=== PATIENT | female | born 1970 | race Caucasian/White ===

== ENCOUNTER 2022-03-05 12:30 | Outpatient (CLI) | payer MEDICARE, SELFPAY ==
[2022-03-05 14:36] LABS: Basophils Absolute Auto 0.03 K/uL (0.00-0.30); Basophils Percent Auto 0.5 % (0.0-3.0); Eosinophils Absolute Auto 0.28 K/uL (0.00-0.50); Eosinophils Percent Auto 4.5 % (0.0-7.0); Hematocrit 39.8 % (33.0-51.0); Hemoglobin* 12.9 gm/dL (12.0-16.0); Immature Granulocytes Abs Auto 0.01 K/uL (0.00-0.30); Immature Granulocytes Pct Auto 0.2 %; Lymphocytes Absolute Auto 2.67 K/uL (0.90-2.90); Lymphocytes Percent Auto 42.5 % (20-44); Mean Corpuscular HGB Conc 32 gm/dL (32-36); Mean Corpuscular Hemoglobin 32 pg (26-34); Mean Corpuscular Volume 98 fL (80-100); Monocytes Percent Auto 9.1 % (0.0-11.0); Neutrophils Absolute Auto 2.72 K/uL (1.7-7.0); Neutrophils Percent Auto 43.2 % (42.0-72.0); Platelet Count* 305 K/uL (140-440); RDW Coefficient of Variation % 12.5 % (11.5-15.5); Red Blood Count 4.07 m/uL (4.00-5.20); White Blood Count* 6.28 K/uL (4.50-11.00)
[2022-03-05 14:50] LABS: Slide Review Reflex No
[2022-03-05 15:31] LABS: Chloride* 104 mmol/L (96-114); Potassium* 4.9 mmol/L (3.6-5.1); Sodium* 141 mmol/L (135-149)
[2022-03-05 15:33] LABS: Creatinine* 1.1 mg/dL (0.5-1.5); Estimated Glomerular Filt Rate 61 ml/min
[2022-03-05 15:34] LABS: Blood Urea Nitrogen* 28 mg/dL (7-30); Calcium* 9.3 mg/dL (8.4-10.6); Carbon Dioxide* 30 mmol/L (20-32); Glucose* 96 mg/dL (60-115)
== END 2022-03-05 12:31 | disposition home or self-care (01) ==
PROVIDERS: PCP Family Medicine; Visit Provider Family Medicine
DX: I10 Essential (primary) hypertension (principal); R35.0 Frequency of micturition; M54.50 Low back pain, unspecified
CPT/HCPCS: 80048; 85025

== ENCOUNTER 2022-10-03 11:40 | Outpatient (CLI) | payer MEDICARE, SELFPAY | END 2022-10-03 11:41 | disposition home or self-care (01) | LOC: OP CLINIC 11:41 | PROVIDERS: PCP Family Medicine; Visit Provider Internal Medicine | DX: Z12.11 Encounter for screening for malignant neoplasm of colon (principal); K64.8 Other hemorrhoids; K63.5 Polyp of colon | CPT/HCPCS: 45380; 88305; J2250; J3010 ==

== ENCOUNTER 2023-01-07 14:22 | Outpatient (CLI) | payer MEDICARE, SELFPAY ==
--- NOTE | 2023-01-07 14:40 | CRLHL7_ITS ---
For Patients: As a result of the Century Cures Act, medical imaging exams and procedure reports are released immediately into your electronic medical record. You may view this report before your referring provider. If you have questions, please contact your health care provider. BILATERAL SCREENING MAMMOGRAM WITH COMPUTER-AIDED DETECTION TECHNIQUE: CC and MLO views were obtained. These mammographic images have been obtained using full-field digital technique. These mammographic images were interpreted with the benefit of computer-aided detection. COMPARISON FILM: 09/21/20. FINDINGS: The breasts are almost entirely fatty IMPRESSION: There is no radiographic evidence for malignancy. ASSESSMENT: BI-RADS Category 1: Negative RECOMMENDATION: Routine screening mammogram in 1 year. A lay language report of this examination will be provided to the patient. Peter Armando M.D. Diagnostic Radiologist [email or web address] JACQUI/florecita / be/Dictated by: Peter Armando MD @ 01/08/2023 12:42:00 PM (Electronically Signed)
== END 2023-01-07 14:23 | disposition home or self-care (01) ==
LOC: MAMMO 14:24
PROVIDERS: PCP Family Medicine; Visit Provider Family Medicine
DX: Z12.31 Encounter for screening mammogram for malignant neoplasm of breast (principal)
CPT/HCPCS: 77067

== ENCOUNTER 2023-04-02 12:14 | Outpatient (CLI) | payer MEDICARE, SELFPAY | END 2023-04-02 12:15 | disposition home or self-care (01) | PROVIDERS: PCP Family Medicine; Visit Provider Family Medicine | DX: I10 Essential (primary) hypertension (principal); Z13.6 Encounter for screening for cardiovascular disorders | CPT/HCPCS: 80048; 80061; 85025 ==

== ENCOUNTER 2023-10-19 16:29 | Outpatient (CLI) | payer MEDICARE, SELFPAY | END 2023-10-19 16:30 | disposition home or self-care (01) | PROVIDERS: PCP Family Medicine; Visit Provider Family Medicine | DX: I10 Essential (primary) hypertension (principal) | CPT/HCPCS: 80048; 84460; 85025 ==

== ENCOUNTER 2024-09-09 11:51 | Outpatient (CLI) | payer MEDICARE, SELFPAY ==
[2024-09-09 12:27] LABS: Lab Add On Test New Spec Needed
== END 2024-09-09 11:52 | disposition home or self-care (01) ==
PROVIDERS: PCP Family Medicine; Visit Provider Family Medicine
DX: I10 Essential (primary) hypertension (principal)
CPT/HCPCS: 80048; 80061; 84460